=== PATIENT | female | born 1965 | race Caucasian/White ===

== ENCOUNTER 2020-04-05 01:55 | Emergency (ER) | payer BC, OTHER ==
[~2020-04-05] VITALS: Ht 167.6 cm; Wt 72.6 kg
[2020-04-05 02:43] LABS: ABSOLUTE NEUTROPHILS 7.4 thou/uL (1.4-8.2); BASOPHILS 0.4 % (0.0-2.0); EOSINOPHILS 0.8 % (0.0-3.0); HEMATOCRIT 42.3 % (37.0-47.0); MCH 31.2 pg (26.0-34.0); MCHC 33.1 g/dL (28.0-37.0); MCV 94.3 fL (80.0-100.0); MONOCYTES 5.7 % (1.0-8.0); PLATELET COUNT 254 thou/uL (150-400); POLYS 70.1 % (36.0-66.0); RBC 4.49 mil/uL (4.20-5.00); RDW 12.8 % (10.5-14.5); WBC 10.5 thou/uL (4.0-11.0)
[2020-04-05 03:06] LABS: CALCIUM 9.8 mg/dL (8.5-10.1); CREATININE 1.1 mg/dL (0.6-1.0)
[2020-04-05 03:10] LABS: ALBUMIN 4.1 g/dL (3.4-5.0); TOTAL BILIRUBIN 0.8 mg/dL (0.2-1.0); TOTAL PROTEIN 7.1 g/dL (6.4-8.2)
[2020-04-05 05:02] LABS: URINE BILIRUBIN NEGATIVE (Negative); URINE BLOOD 3+ (Negative); URINE CLARITY CLOUDY; URINE COLOR YELLOW; URINE GLUCOSE-RANDOM* NEGATIVE (Negative); URINE KETONES NEGATIVE (Negative); URINE LEUKOCYTES-REFLEX TRACE (Negative); URINE NITRITE-REFLEX NEGATIVE (Negative); URINE PROTEIN (DIPSTICK) NEGATIVE (Negative); URINE UROBILINOGEN 0.2 E.U./dl (0.2-1.0)
[2020-04-05 05:03] LABS: BACTERIA-REFLEX 1-9 Few /HPF (None Seen); CASTS None Seen /LPF (None Seen); MUCUS 4-6 Moderate strn/LPF (None Seen); SQUAMOUS 4-10 Moderate /LPF (0-3); URINE RBC >20 Many /HPF (0-2); URINE WBC-REFLEX 0-5 Rare /HPF (0-5)
[2020-04-05 05:04] LABS: CRYSTALS None Seen /LPF (None Seen)
[2020-04-05 07:39] VITALS: BP 119/72
== END 2020-04-05 07:39 | disposition short-term general hospital (02) ==
LOC: ER 01:55
PROVIDERS: Emergency Medicine
DX: N13.2 Hydronephrosis with renal and ureteral calculous obstruction (principal); R11.2 Nausea with vomiting, unspecified; Z87.442 Personal history of urinary calculi; Z88.5 Allergy status to narcotic agent